=== PATIENT | female | born 1990 | race Hispanic/Latino ===

== ENCOUNTER 2023-08-12 06:25 | Emergency (ER) | payer OTHER ==
[~2023-08-12] VITALS: Ht 162.6 cm; Wt 77.1 kg
[2023-08-12] MEDS: SODIUM CHLORIDE 0.9% 1000ML 1,000 ML IV SCH (07:05)
[2023-08-12] MEDS: ACETAMINOPHEN 325 MG TAB PO ONE (07:06)
[2023-08-12] MEDS: KETOROLAC TROMETHAMINE 30 MG/ML VIAL IV STA (07:07)
[2023-08-12 07:17] LABS: BASOPHILS % 0.7 % (0.0-1.0); HEMATOCRIT 33.8 % (34.2-44.1); LYMPHOCYTES # (AUTO) 0.7 (1.0-3.2); LYMPHOCYTES % 16.1 % (18.0-39.1); MEAN CORPUSCULAR HEMOGLOBIN 25.5 pg (28-32); MEAN CORPUSCULAR HGB CONC 32.5 g/dL (31-35); MEAN CORPUSCULAR VOLUME 78.4 fL (81-99); MONOCYTES # (AUTO) 0.3 (0.2-0.8); MONOCYTES % 7.9 % (4.4-11.3); NEUTROPHILS # (AUTO) 3.2 (2.1-6.9); NEUTROPHILS % 75.1 % (38.7-80.0); PLATELET COUNT 194 x10e3/uL (140-360); RED BLOOD COUNT 4.31 x10e6/uL (3.6-5.1); RED CELL DISTRIBUTION WIDTH 14.9 % (11.7-14.4); WHITE BLOOD COUNT 4.28 x10e3/uL (4.8-10.8)
[2023-08-12 07:38] LABS: ALBUMIN 4.4 g/dL (3.5-5.0); BILIRUBIN,TOTAL 0.3 mg/dL (0.2-1.2); CALCIUM 9.5 mg/dL (8.4-10.2); CREATININE, SERUM 0.81 mg/dL (0.57-1.11); TOTAL PROTEIN 8.8 g/dL (6.5-8.1)
[2023-08-12 07:44] LABS: INFLUENZAE A&B ANTIGEN (RAPID) NEGATIVE (NEGATIVE)
[2023-08-12 07:45] LABS: RESPIRATORY SYNC. VIRUS POSITIVE (NEGATIVE)
[2023-08-12 08:08] VITALS: O2SAT 100
== END 2023-08-12 08:28 | disposition home or self-care (01) ==
LOC: ER 06:30
DX: R50.9 Fever, unspecified (principal); U07.1 COVID-19; B97.4 Respiratory syncytial virus as the cause of diseases classified elsewhere
CPT/HCPCS: 36415; 80053; 83518; 84702; 85025; 87070; 87400; 87420; 93005; 99283; J1885; J7030; U0002